=== PATIENT | female | born 1970 | race Caucasian/White ===

== ENCOUNTER 2025-06-22 10:52 | Observation (INO) | payer BC, OTHER, SELFPAY ==
--- NOTE | 2025-06-15 12:10 | ELECTROCARDIOGRAPH REPORT ---
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 ARMIDA Barnes Measurements Intervals [place] Rate: 78 P: 42 MS: 175 QRS: 35 QRSD: 85 T: 24 QT: 421 QTc: 480 Interpretive Statements Sinus rhythm Abnormal R-wave progression, early transition Electronically Signed On 06-15-2025 17:23:[address] ARMIDA Barnes Please click the below link to view image of tracing.
[2025-06-15 12:15] LABS: MEAN PLATELET VOLUME 8.0 FL (7.4-10.4); PRE OP HEMATOCRIT 38.9 % (35.0-45.0); PRE OP HEMOGLOBIN 13.0 g/dL (12.0-16.0); PRE OP PLATELET COUNT 224 X10'3 (140-440); PRE OP WHITE BLOOD COUNT 4.7 10'3 (4.8-10.8); RED CELL DISTRIBUTION WIDTH 13.7 % (11.5-14.5)
[2025-06-15 12:19] LABS: PRE OP INR 1.0 INR; PRE OP PARTIAL THROMB. TIME 26.0 SECONDS (22-32); PRE OP PROTIME 10.2 SECONDS (9.0-12.0)
[2025-06-15 12:20] LABS: CREATININE 0.67 MG/DL (0.40-0.90); PRE OP ALT 32 U/L (30-65); PRE OP ANION GAP 13 (8-16); PRE OP AST 23 U/L (10-37); PRE OP BILIRUB, TOTAL 0.9 MG/DL (0.0-1.0); PRE OP GLUCOSE 100 MG/DL (70-104); PRE OP POTASSIUM 4.4 MMOL/L (3.4-5.1); PRE OP SODIUM 141 MMOL/L (135-145); TOTAL CARBON DIOXIDE 24.5 MMOL/L (24-32); eGFR > 90 ML/MIN
[2025-06-15 12:24] LABS: HCG SERUM QL POSITIVE
--- NOTE | 2025-06-15 12:46 | RADIOLOGY REPORT ---
DI CHEST,TWO VIEWS CLINICAL HISTORY: pain COMPARISON: None TECHNIQUE: Frontal and lateral view of the chest was obtained FINDINGS: Lines and Tubes: None Lungs: No focal consolidation. Pleura: No effusion. No pneumothorax. Cardiomediastinal contours: Unremarkable Bones: No acute osseous abnormality. IMPRESSION: No acute cardiopulmonary disease.
[2025-06-15 13:01] LABS: LEUKOCYTE ESTERASE ,URINE NEGATIVE (Neg); NITRITES, URINE NEGATIVE (Neg); OCCULT BLOOD,URINE NEGATIVE (Neg); UA COLLECTION TYPE NON-SPECIFIED
[2025-06-22] VITALS (23 sets, daily range): BP systolic 99–149; BP diastolic 57–95; PULSE 74–100; RESP 10–18; TEMP 97.8–98; O2SAT 91–100
[~2025-06-22] VITALS: Ht 165.1 cm; Wt 130.6 kg
[2025-06-22] MEDS: Cefazolin 3 GM/100ML NS IVPB 100 ML IV ONE (10:51)
[~2025-06-22 10:52] MED LIST: ACET-1025 PO; ALBU8HFA INH; AMPH10TA23 PO; ESCI20TA PO; FEXO180T94 PO; HYDR-3686 PO; IBUP600T52 PO; LEVO100T PO; MULT-1249 PO; ZOLP-679 PO; [UNRECOGNIZED DRUG - OTHER] PO; ringers solution, lacted 1,000 ML IV SCH
[2025-06-22] MEDS ORDERED: fentaNYL/PF 50MCG/1 ML 2ML syringe IV PRN ×2 (11:00)
[2025-06-22] MEDS ORDERED: HYDROmorphone/PF 0.2 MG/ML SYRINGE IV PRN (11:00)
[2025-06-22] MEDS ORDERED: labetalol 20mg/4ml (5mg/ml) syringe IV PRN (11:00)
[2025-06-22] MEDS ORDERED: ringers solution, lacted 1,000 ML IV SCH ×2 (11:00→18:15)
[2025-06-22] MEDS ORDERED: morphine 4 MG/ML inj SYRINge IV PRN (11:00)
[2025-06-22] MEDS ORDERED: enalaprilat 1.25mg/ml 2ml vial IV PRN (11:00)
[2025-06-22] MEDS ORDERED: vancomycin 1,000mg inj ONE (12:46)
[2025-06-22] MEDS ORDERED: fentaNYL/PF 50MCG/1 ML 2ML syringe ONE (13:14)
[2025-06-22] MEDS ORDERED: MIDAZolam 1 MG/ML 5ML VIAL ONE (13:14)
[2025-06-22] MEDS ORDERED: morphine 10mg/ml inj. ONE (13:48)
[2025-06-22] MEDS ORDERED: BUPIVAcaine/PF 7.5mg/ml (0.75%) 10ml vial ONE (13:48)
[2025-06-22] MEDS ORDERED: propofol inj 20 ML IV ONE ×2 (13:48)
[2025-06-22] MEDS ORDERED: ROPIVAcaine 0.5% (5mg/ml) 30ml vial ONE (13:48)
[2025-06-22] MEDS ORDERED: LIDOcaine 1%/PF 5ML 10 MG/ML VIAL ONE (13:48)
[2025-06-22] MEDS: povidone-iodine 120ml topical solution TP ONE (14:22)
[2025-06-22] MEDS: vancomycin 1,000mg inj IVT ONE (14:22)
--- NOTE | 2025-06-22 14:47 | ANESTHESIA RECORDS ---
Nerve Block Providers to CC ~ Diagnosis: Nerve Block requested by: ELI CONROY DPM Neuraxial/Peripheral Nerve Block requested for Post-operative analgesia by Physician above DIAGNOSIS: Post-operative pain. (Body Area) Shoulder: [ ] Arm: [ ] Hand: [ ] Hip: [ ] Knee: [ ] Ankle: [___Left ] Foot: [ ] Leg: [ Left Lower leg ] Abdomen: [ ] Other: [ ] Post-operative pain expected to be/is inadequately managed by oral or IV medicines. Regional anesthetic expected to facilitate rehabilitation and/or discharge from facility. Other:[ _] Procedure Performed: Femoral / Saphenous: Left Popliteal Lateral: Left Time out Done?: Yes Time of Time out: 13:12 Procedure Details: PROCEDURE DETAILS: Risks, benefits and alternatives explained Informed consent obtained, and patient wishes to proceed Conscious sedation with indicated monitors Patient positioned, pertinent anatomy defined, sterile technique used Needle used: [ ] 3 1/8 inch Stimuplex Ultra 22ga [x ] 4 inch Stimuplex Ultra 20ga [x ] 6 inch Stimuplex Ultra 20ga [ ] 6 inch, Quikbloc over the needle catheter set 20ga [ ] 4 inch Quikbloc over the needle catheter set 20ga [ ]Other: [ ] Loss of twitch @ [ 0.5 ___]mA [x ] Single Injection [ ] Catheter Ultrasound Guidance Used: [x ] Yes [ ] No Attempts:[ once ] Medicines injected: [x ]Clonidine Amt:[ 60 mcgs ] [x ]Dexamethasone Amt:[____4 mgs ] [x ]Ropivacaine Amt:[____0.5% 30 cc ] [x ]Bupivacaine Amt:[___0.375% 16 cc ] [ ]Lidocaine Amt:[ ] [ ]Exparel 1.33%:[ ] [ ]Epinephrine Amt[ ] [ ]Other: [ ] Intermittent aspiration during local anesthetic administration No symptoms of intraneural or intravenous injection Patient tolerated procedure well Comments Left Popliteal fossa Block Pt in Rt lateral position with Left Leg flexed at 90 Degrees. Lateral approach. Ultrasound probe placed back of thigh 2 inches above the knee joint. Easy visualization of the Sciatic nerve. 1% xylocaine local anesthetic. Easy visualization of Spreading of local anesthetic anterior and posterior to the Sciatic nerve sub paraneurally inside sciatic nerve sheath. Meaningful conversation t throughout. No Pain or discomfort during injection. Lt Adductor Canal blk Procedure done before surgery under General anesthesia. Pt supine with Lt leg rotated to Lt slightly. Easy visualization of Adductor Canal with ultra sound anterolateral to Femoral artery at the junction of upper and middle third of thigh. Able to see the tip of the needle and injected local anesthetic with the ultrasound MORALES LEWIS MD Jun 22, 2025 14:47
[2025-06-22] MEDS ORDERED: acetaminophen 1,000mg/100ml IV 100 ML IV ONE (17:12)
[2025-06-22] MEDS: ondansetron/PF 4mg/2ml inj IV PRN (17:40)
--- NOTE | 2025-06-22 17:47 | OPERATIVE REPORT ---
DATE OF SURGERY: 06/22/2025 DICTATING PHYSICIAN: Francisco Abraham DPM SURGEON: Francisco Abraham DPM DEICER REPAIRER: MAIRA Bravo, MSN PREOPERATIVE DIAGNOSES: * Painful left ankle arthritis. * Progressive collapsing foot deformity, left. POSTOPERATIVE DIAGNOSES: * Painful left ankle arthritis. * Progressive collapsing foot deformity, left. PROCEDURES: * Total ankle replacement, left, utilizing the Lucan 28 total ankle stemmed system. * Medial displacement calcaneal osteotomy, left. ANESTHESIA: General. The patient was also given a popliteal and saphenous block preoperatively. Tourniquet was used inflated to 250 mmHg at the level of the left thigh. The patient was given 3 grams of cefazolin IV 30 minutes prior to skin incision. COMPLICATIONS: None. C-arm was used during the case. A short-leg splint was applied at the conclusion of the case. INDICATIONS FOR SURGERY: The patient has had unremitting pain and disability since her initial Workers' Compensation injury back in 07/2024. She has tried numerous conservative measures, which have not been successful in reducing a chief complaint of pain and disability. Therefore, surgical intervention was considered justified. DESCRIPTION OF PROCEDURE: The patient was escorted to the operating room suite where she was prepared and draped in the usual sterile technique. The patient was placed in the supine position. An additional prep was done by the surgeon with ChloraPrep. The entire surgical scrub team wore [place] hoods during the case. Power pulse lavage was used with 10 mL of Betadine solution infused in 3 L of normal saline and this was completely used during the entirety of the case. Irrisept was also used for irrigation and at the end of the case, 1 g of vancomycin powder was doused into the surgical wound. The standard alignment guide was used for the Lucan 28 stemmed system. The surgical technique was in accordance with the surgeon's manual. There was no deviation of surgical technique. The tibial tray was #2 and it was a standard length, size 2, side left, standard length. The talar component was size 1 side left and the polyethylene insert was a size 1 thickness of 8 mm. C-arm was used during the case. The C-arm confirmed appropriate position and alignment of the implant in both the AP and lateral views. There was good range of motion noted. The second part of the procedure that was actually done before the total ankle replacement was the medial displacement calcaneal osteotomy. This was done by way of a lateral approach along the calcaneus. The sural nerve was protected and the bleeding vessels were bovied throughout the procedure and a calcaneal osteotomy was performed from lateral to medial and then the tuberosity of the calcaneus was distracted and then shifted medially about 8 mm. Final fixation was achieved with the use of two 7.0 partially threaded screws, which provided rigid internal compression and fixation. Tissues were closed in layers. There were no complications. Capillary refill time was noted to be instantaneous. The tourniquet was deflated at 120 minutes. A short-leg splint was applied. It was a Owen type splint and the patient was then escorted to PACU with the appropriate postoperative instructions. Again, capillary refill time was noted to be instantaneous for toes 1 through 5. One final note, intraoperatively, the tibiotalar joint was visually inspected and there were significant erosive changes along the anterior third, 25% to 30% of the talar dome was noted to be extremely arthritic along the anterior aspect. There was also heterotopic bone spurring along the distal anterior tibia. Francisco Abraham DPM TID: [id number] RECEIPT: [id number] KIERAN
[2025-06-22] MEDS ORDERED: albuterol 2.5 MG/3 ML nebule NEB PRN (18:05)
[2025-06-22] MEDS: HYDROmorphone/PF 0.2 MG/ML SYRINGE IV PRN (18:10)
[2025-06-22] MEDS: ringers solution, lacted 1,000 ML IV SCH (20:15)
[2025-06-22] MEDS: ceFAZolin 2gm/dext,iso 50mL 50 ML IV SCH (22:25)
[2025-06-23 02:00] VITALS: BP 121/67; PULSE 75; RESP 18; TEMP 97.7; O2SAT 97
[2025-06-23 06:00] VITALS: BP 123/72; PULSE 79; RESP 16; TEMP 97.2; O2SAT 99
[2025-06-23] MEDS: multivitamins, therapeutics tablet PO SCH (08:26)
[2025-06-23] MEDS: ESCITALOPRAM 10 mg tablet 10 MG TABLET PO SCH (08:26)
[2025-06-23] MEDS: levoTHYROXINE 100mcg tablet PO SCH (08:26)
[2025-06-23 09:40] VITALS: RESP 18; O2SAT 100
[2025-06-23 10:00] VITALS: BP 139/77; PULSE 93; RESP 19; TEMP 98.1; O2SAT 100
[2025-06-23] MEDS ORDERED: Chloraseptic (Phenol) Spray 177ml MM PRN (10:10)
[2025-06-23 11:06] VITALS: PULSE 100; RESP 20; O2SAT 99
[2025-06-23 11:32] VITALS: RESP 16
== END 2025-06-23 13:10 | disposition home or self-care (01) ==
LOC: PAS 10:52 → EDSTATUS 12:15 → SUR 3N 18:04 → UNDOADMIN 18:04 → SUR 3N 18:04
PROVIDERS: ADMIT Podiatrist Foot & Ankle Surgery; ATTEND Podiatrist Foot & Ankle Surgery
DX: M19.172 Post-traumatic osteoarthritis, left ankle and foot (principal); M21.6X2 Other acquired deformities of left foot; M25.572 Pain in left ankle and joints of left foot; F41.9 Anxiety disorder, unspecified; F32.9 Major depressive disorder, single episode, unspecified; E03.9 Hypothyroidism, unspecified; G47.30 Sleep apnea, unspecified; J45.909 Unspecified asthma, uncomplicated; R79.1 Abnormal coagulation profile; Z79.899 Other long term (current) drug therapy; Z98.890 Other specified postprocedural states
CPT/HCPCS: 27702; 36415; 71046; 73600; 80053; 81003; 82948; 84703; 85025; 85610; 85730; 87081; 93005; 94760; 96365; 96366; 96375; 97161; A6454; C1713; C1776; G0378; J0131; J0690; J0780; J1171; J2060; J2250; J2274; J2405; J2704; J2795; J3010; J3373; J3490; J7120; 76000; A4615; A4618; A6253; A6449; A6455; A7000